=== PATIENT | female | born 1990 | race Caucasian/White ===

== ENCOUNTER 2023-12-29 09:05 | Inpatient (IN) | payer OTHER ==
[2023-12-29 10:12] LABS: BASO % 0.1 % (0-2.0); HEMATOCRIT 37.2 % (32.4-45.2); HEMOGLOBIN 12.7 GM/dL (10.7-15.3); LYMPH % 6.1 % (8-40); MCH 31.2 pg (25.7-33.7); MCHC 34.1 g/dl (32.0-36.0); MEAN CELL VOLUME 91.4 fl (80-96); MEAN PLT VOLUME 7.6 fl (7.5-11.1); MONO % 5.3 % (3.8-10.2); NEUT % 88.5 % (42.8-82.8); PLATELET COUNT 274 10^3/uL (134-434); RBC 4.08 M/mm3 (3.60-5.2); RDW 13.8 % (11.6-15.6); WHITE BLOOD COUNT 19.5 K/mm3 (4.0-10.0)
[2023-12-29 10:19] LABS: INR 0.94 (0.83-1.09); PROTHROMBIN TIME (PATIENT) 10.8 SEC (9.7-13.0)
[2023-12-29 10:34] LABS: CHLORIDE 102 mmol/L (98-107); POTASSIUM 3.9 mmol/L (3.5-5.1); SODIUM 134 mmol/L (136-145)
[2023-12-29 10:36] LABS: ANION GAP 12 mmol/L (4-13); BLOOD UREA NITROGEN 8.7 mg/dL (7-18); CO2 20 mmol/L (21-32); GLUCOSE,RANDOM 93 mg/dL (74-106)
[2023-12-29 10:39] LABS: CREATININE 0.6 mg/dL (0.55-1.3)
[2023-12-29 10:46] VITALS: BMI 30.7
[2023-12-29] MEDS ORDERED: OXYTOCIN 20 UNITS in 0.9% NS 20 UNIT/1,000 ML INFUS.BAG IV ONE ×2 (12:08→14:17)
[2023-12-29] MEDS: OXYTOCIN 20 UNITS in 0.9% NS 20 UNIT/1,000 ML INFUS.BAG IV SCH (12:30)
[2023-12-29] MEDS: METHYLERGONOVINE MALEATE 0.2 MG/1 ML AMP IM ONE (12:40)
[2023-12-29 12:49] LABS: HIV INTERPRETATION NEGATIVE (NEGATIVE)
[2023-12-29] MEDS ORDERED: oxyCODONE HCL 5 MG TABLET PO PRN (13:11)
[2023-12-29] MEDS ORDERED: METHYLERGONOVINE MALEATE 0.2 MG/1 ML AMP IM PRN (13:11)
[2023-12-29] MEDS ORDERED: WITCH HAZEL 50% (TUCKS) 40 PAD/JAR PAD TP PRN (13:11)
[2023-12-29] MEDS ORDERED: BISACODYL 10 MG SUPP.RECT RC PRN (13:11)
[2023-12-29] MEDS ORDERED: ACETAMINOPHEN 325 MG TABLET (FP) PO PRN (13:11)
[2023-12-29 13:37] LABS: CORD BASE EXCESS -2.6 mmol/L (0-2); CORD HCO3 20.7 mmHg (20-29); CORD PCO2 33.1 mmHg (30-78); CORD pH 7.415 (7.14-7.44)
[2023-12-29] MEDS: BENZOCAINE 20% 57 GM BOTTLE TP PRN (15:22)
[2023-12-29] MEDS: BENZOCAINE 28 GM HEMORRHOIDAL OINTMENT TP PRN (15:23)
[2023-12-29] MEDS: IBUPROFEN 600 MG TABLET (FP) PO PRN (19:20)
[2023-12-30 08:02] LABS: BASO % 0.1 % (0-2.0); EOS % 0.4 % (0-4.5); HEMATOCRIT 33.1 % (32.4-45.2); HEMOGLOBIN 11.5 GM/dL (10.7-15.3); LYMPH % 9.5 % (8-40); MCH 31.8 pg (25.7-33.7); MCHC 34.6 g/dl (32.0-36.0); MEAN CELL VOLUME 91.8 fl (80-96); MEAN PLT VOLUME 7.4 fl (7.5-11.1); MONO % 6.9 % (3.8-10.2); NEUT % 83.1 % (42.8-82.8); PLATELET COUNT 242 10^3/uL (134-434); RDW 13.8 % (11.6-15.6); WHITE BLOOD COUNT 18.7 K/mm3 (4.0-10.0)
[2023-12-30] MEDS ORDERED: SENNOSIDES/DOCUSATE COMBO (SENNA PLUS) TABLET (UD) PO PRN (22:00)
[2023-12-31 11:58] VITALS: BP 117/60; PULSE 78; RESP 16; TEMP 98.3
== END 2023-12-31 11:55 | disposition home or self-care (01) | DRG 807 ==
LOC: JLDR 09:05 → J3W 14:30
PROVIDERS: ADMIT Obstetrics & Gynecology; ATTEND Obstetrics & Gynecology
PROC: 10E0XZZ Delivery of Products of Conception, External Approach (ICD-10-PCS; principal; 2023-12-29)
PROC: 0HQ9XZZ Repair Perineum Skin, External Approach (ICD-10-PCS; 2023-12-29)
DX: O70.0 First degree perineal laceration during delivery (principal); Z37.0 Single live birth; O69.81X0 Labor and delivery complicated by cord around neck, without compression, not applicable or unspecified; Z3A.39 39 weeks gestation of pregnancy
CPT/HCPCS: 36415; 36600; 59409; 80048; 82803; 85025; 85610; 85730; 86780; 86850; 86900; 86901; 87389